=== PATIENT | female | born 1980 | race Caucasian/White ===

== ENCOUNTER 2016-09-22 13:54 | Emergency (ER) | payer OTHER ==
[~2016-09-22] VITALS: Ht 162.6 cm; Wt 59.1 kg
[2016-09-22 13:56] VITALS: BP 132/87; TEMP 98.4
[2016-09-22] MEDS ORDERED: AMOXICILLIN 8751 TAB PO (14:03)
[2016-09-22] MEDS ORDERED: VICOPROFEN 7.51 TAB PO (14:04)
[2016-09-22] MEDS ORDERED: PERCOCET 325 MG1 TA2 PO (14:04)
[2016-09-22 15:09] LABS: ADJUSTED CALCIUM 9.6 mg/dL (8.4-10.2); ALBUMIN 4.4 gm/dL (3.5-5.0); BILIRUBIN,TOTAL 1.1 mg/dL (0.0-1.0); CALCIUM 9.9 mg/dL (8.4-10.2); CREATININE, serum 0.8 mg/dL (0.52-1.25); POTASSIUM 3.7 mmol/L (3.4-5.0); TOTAL PROTEIN 7.3 gm/dL (6.4-8.2)
[2016-09-22 15:14] LABS: BASO % 0.3 % (0.0-2.0); EOS # 0.1 (0.0-0.7); EOS % 0.7 % (0-4.0); GRAN # 9.5 (1.4-6.5); HEMATOCRIT 42.3 % (37.0-47.0); HEMOGLOBIN 14.9 g/dl (12.5-16.0); LYMPH % 8.8 % (20.0-51.0); MEAN CELL VOLUME 89 fl (80.0-100.0); MEAN CORPUSCULAR HEMOGLOBIN 31 pg (27.0-31.0); MEAN CORPUSCULAR HGB CONC 35 g/dl (33.0-37.0); MEAN PLATELET VOLUME 10.4 fl (7.4-10.4); MONO # 0.8 (0.1-0.6); MONO % 6.9 % (1.7-9.3); PLATELET COUNT 184 K/mm3 (130-400); RED BLOOD COUNT 4.75 M/mm3 (4.10-5.30); REDCELL DISTRIBUTION WIDTH-CV 12.2 % (11.5-14.5); WHITE BLOOD COUNT 11.5 K/mm3 (4.8-10.8)
[2016-09-22] MEDS ORDERED: ZOFRAN ODT4 MG PO (17:18)
[2016-09-22 17:26] VITALS: PULSE 79
== END 2016-09-22 17:28 | disposition home or self-care (01) ==
LOC: COL.ER 13:54
PROVIDERS: Nurse Practitioner
DX: K04.7 Periapical abscess without sinus (principal)
CPT/HCPCS: J1100; J2405; J3010; J7030; Q9967